=== PATIENT | female | born 1995 | race Two or more races ===

== ENCOUNTER 2019-12-08 07:25 | Emergency (ER) | payer MEDICAID ==
[~2019-12-08] VITALS: Ht 175.3 cm; Wt 101.2 kg
[2019-12-08] MEDS ORDERED: cefTRIAXone SOD 1,000 MG VL IM ONE (09:00)
[2019-12-08 09:13] VITALS: BP 114/74
== END 2019-12-08 09:23 | disposition home or self-care (01) ==
LOC: ER 07:25
DX: J03.90 Acute tonsillitis, unspecified (principal)
CPT/HCPCS: 71046; 81002; 81025; 96372; 99283; J0696

== ENCOUNTER 2021-06-19 15:59 | Emergency (ER) | payer MEDICAID ==
[~2021-06-19] VITALS: Ht 175.3 cm; Wt 110.2 kg
[2021-06-19 19:05] VITALS: BP 125/82
== END 2021-06-19 20:37 | disposition home or self-care (01) ==
LOC: ER 15:59
DX: S93.491A Sprain of other ligament of right ankle, initial encounter (principal); W22.8XXA Striking against or struck by other objects, initial encounter; Y93.89 Activity, other specified; Y92.89 Other specified places as the place of occurrence of the external cause; Y99.8 Other external cause status
CPT/HCPCS: 73610

== ENCOUNTER 2022-06-05 01:28 | Emergency (ER) | payer MEDICAID ==
[~2022-06-05] VITALS: Ht 175.3 cm; Wt 200.0 kg
[2022-06-05 04:00] VITALS: BP 127/63
[2022-06-05] MEDS ORDERED: TETANUS-DIPTH-ACEL PERTUSSIS 0.5ML SYR Tdap IM ONE (04:15)
== END 2022-06-05 18:58 | disposition home or self-care (01) ==
LOC: ER 01:28
DX: S61.432A Puncture wound without foreign body of left hand, initial encounter (principal); W18.09XA Striking against other object with subsequent fall, initial encounter; Y93.89 Activity, other specified; Y92.89 Other specified places as the place of occurrence of the external cause; Y99.8 Other external cause status
CPT/HCPCS: 73130; 90471; 90715

== ENCOUNTER 2023-09-12 04:51 | Emergency (ER) | payer MEDICAID ==
[~2023-09-12] VITALS: Ht 175.3 cm; Wt 113.6 kg
[~2023-09-12 04:51] MED LIST: ERGO1CAP12 PO; FERR-7 PO; MAGN400S25 PO; MINEENE3 RE
[2023-09-12 05:08] VITALS: BP 142/93; PULSE 91; RESP 16; TEMP 97.4
[2023-09-12] MEDS ORDERED: cefTRIAXone SOD 1,000 MG VL IM ONE (06:45)
[2023-09-12 06:50] VITALS: O2SAT 96
[2023-09-12 07:55] LABS: Urine Bacteria FEW /hpf (None Seen); Urine Blood Negative /uL (Negative); Urine Clarity HAZY (Clear); Urine Color Yellow (Yellow); Urine Mucus FEW (None Seen); Urine Protein, UAD TRACE (Negative); Urine Specific Gravity 1.033 (1.001-1.035); Urine Urobilinogen Normal (Negative); Urine WBC 25 /hpf (0 - 5); Urine pH 6.5 (5.0-8.0)
[2023-09-12] MEDS ORDERED: CEPH500C PO (08:19)
[2023-09-12] MEDS ORDERED: METR-344 PO (08:19)
[2023-09-12] MEDS ORDERED: IBUP1TAB5 PO (08:19)
[2023-09-12 09:54] LABS: Vaginal Trichomonas Not Present
[2023-09-12 09:56] LABS: Vaginal Bacteria None Seen
[2023-09-12 10:01] LABS: Vaginal Clue Cells None Seen
[2023-09-12 10:02] LABS: Vaginal Epithelial Cells Moderate
[2023-09-14 04:06] LABS: Chlamydia Trachomatis, NAA Negative (Negative); Neisseria gonorrhoeae, NAA Negative (Negative)
== END 2023-09-12 08:29 | disposition home or self-care (01) ==
LOC: ER 04:51
DX: N76.4 Abscess of vulva (principal); N76.0 Acute vaginitis; Z79.899 Other long term (current) drug therapy
CPT/HCPCS: 81001; 87210; 87491; 87591; 96372; 99283; J0696

== ENCOUNTER 2023-12-28 14:44 | Emergency (ER) | payer MEDICAID ==
[~2023-12-28] VITALS: Ht 175.3 cm; Wt 112.8 kg
[~2023-12-28 14:44] MED LIST changes: +CEPH500C PO; +IBUP1TAB5 PO; +METR-344 PO
[2023-12-28 15:54] VITALS: BP 141/93; PULSE 99; RESP 15; TEMP 98.5; O2SAT 99
[2023-12-28] MEDS: KETOROLAC TROMETH 30 MG/ML 1ML VIAL IM ONE (16:40)
== END 2023-12-28 16:44 | disposition home or self-care (01) ==
LOC: ER 14:44
DX: M25.512 Pain in left shoulder (principal)
CPT/HCPCS: 73000; 73030; 73060; 96372; 99284; J1885

== ENCOUNTER 2024-09-19 00:59 | Emergency (ER) | payer MEDICAID ==
[~2024-09-19] VITALS: Ht 175.3 cm; Wt 50.0 kg
[~2024-09-19 00:59] MED LIST changes: +CYCL-837 PO; +IBUP-1456 PO
[2024-09-19 01:30] VITALS: BP 126/74; PULSE 108; RESP 16; TEMP 98.9; O2SAT 100
--- NOTE | 2024-09-19 02:16 | ED.PDOC ---
History of Present Illness HPI Comments 29-year-old female presents to ER with complaints of flu-like symptoms x2 days. Patient reports that she has been experiencing dry cough, on/off frontal headache and diarrhea x2 days with associated nausea x1 day. States she has been around her niece who has also been experiencing similar symptoms. She rates her current frontal headache pain a 9/10. Denies use of medications for current symptoms. Patient presents to ER ambulatory on arrival, with steady gait, in no distress. Denies vomiting, shortness of breath, hemoptysis, chest pain, sore throat, earache, dizziness, abdominal pain, bloody diarrhea, changes in urination or any further symptoms/complaints Chief Complaint: Flu like Time Seen by MD: 01:39 Primary Care Provider: UNKNOWN Reviewed Notes: Nurses Notes, Medications, Allergies Information Source: Patient Past Medical History PAST MEDICAL HISTORY: Denies Surgical History: Denies all surgeries APPEALS COORDINATOR History: No Pertinent APPEALS COORDINATOR History Family History Family History: Unknown Social History Smoker: Non-Smoker Alcohol: Denies ETOH Use Drugs: Denies Drug Use Lives In: Home Constitutional: No Symptoms Reported EENTM: No Symptoms Reported Respiratory: See HPI Cardiovascular: No Symptoms Reported Gastrointestinal: See HPI Genitourinary: No Symptoms Reported Neurological: See HPI Musculoskeletal: No Symptoms Reported Integumentary: No Symptoms Reported Allergic/Immunocompromised: others (DENIES) Hematologic/Lymphatic: No Symptoms Reported Endocrine: No Symptoms Reported Psychiatric: No symptoms Reported Physical Exam General Appearance: No Apparent Distress, Obese HEENT: Normal ENT Inspection, PERRL/EOMI, Pharynx Normal, TMs Normal Neck: Full Range of Motion, Non-Tender, Normal Respiratory: Chest Non-Tender, Lungs Clear, No Accessory Muscle Use, No Respiratory Distress, Normal Breath Sounds Cardiovascular: No Murmur, No Gallop, Regular Rate/Rhythm Breast Exam: Deferred Gastrointestinal: No Organomegaly, Non Tender, No Pulsatile Mass, Normal Bowel Sounds, Soft Genitalia: Deferred Pelvic: Deferred Rectal: Deferred Extremities: Normal capillary refill, Normal range of motion Neurologic: Alert, 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 Was a procedure done?: No Sedation Sedation?: No Fever Differential Dx Differential Diagnosis: Pneumonia, Pharyngitis, Other (COVID 19, influenza) X-Ray, Labs, Meds, VS Vital Signs Date Time Temp Pulse Resp B/P (MAP) Pulse Ox O2 Delivery O2 Flow Rate FiO2 09/19/24 01:30 98.9 108 16 126/74 (91) 100 Lab Test 09/19/24 02:12 09/19/24 02:10 Range/Units Urine Color Yellow Yellow Urine Clarity Clear Clear Urine pH 5.5 5.0-9.0 Urine Specific [place] 1.038 H 1.001-1.035 Urine Protein Trace H Negative Urine Ketones Negative Negative Urine Blood Trace H Negative /uL Urine Nitrite Negative Negative Urine Bilirubin Negative Negative Urine Urobilinogen Normal Negative mg/dL Urine Leukocyte Esterase 2+ Negative /uL Urine RBC 11 0 - 4 /hpf Urine WBC 8 0 - 5 /hpf Urine Squamous Epithelial Cells Few <5 /hpf Urine Bacteria None seen None Seen /hpf Urine Mucus Few None Seen Urine Glucose Normal Normal mg/dL Urine Test Negative Negative Influenza Type A Antigen Negative Negative Influenza Type B Antigen Negative Negative SARS-CoV-2 Antigen (Rapid) Negative NEGATIVE Mary reviewed - negative Influenza A&B reviewed- negative Urinalysis reviewed - urine leukocyte esterase 2+, urine blood trace, urine nitrites negative Urine reviewed - negative Patient tolerating p.o. intake well and in no distress prior to discharge Diet education discussed Advised to follow up with PCP in 1-2 days Patient verbalized understanding and agreeable with current plan of care Advised to return to ER immediately if symptoms worsen Time of 1ST Reevaluation: 02:12 Reevaluation 1ST: N/A Patient Education/Counseling: Diagnosis, Treatment, Prognosis, Need For Follow Up Family Education/Counseling: No Family Present Departure 1 Departure Time of Disposition: 03:02 Impression: Primary Impression: UTI (urinary tract infection) Qualified Codes: N30.01 - Acute cystitis with hematuria Additional Impressions: Viral URI Gastroenteritis Disposition: HOME / SELF CARE / HOMELESS Condition: Stable e-Prescriptions Ciprofloxacin Hcl (Ciprofloxacin Hcl) 500 Mg Tab 1 TAB PO BID for 7 Days, #14 TAB 0 Refills Prov: CARLEE DHILLON 09/19/24 Acetaminophen (Acetaminophen) 500 Mg Tab 500 MG PO Q4HPRN, #30 TAB 0 Refills Prov: CARLEE DHILLON 09/19/24 Discharged With: Self Critical Care Note Critical Care Time?: No Stability Stability form required: No Heart Score Heart Score: Heart Score Response (Comments) Value History N/A 0 EKG N/A 0 Age N/A 0 Risk Factors N/A 0 Troponin N/A 0 Total 0 CARLEE DHILLON Sep 19, 2024 02:16
[2024-09-19 02:33] LABS: Urine Bacteria None Seen /hpf (None Seen)
[2024-09-19 02:49] LABS: Urine Blood TRACE /uL (Negative); Urine Clarity Clear (Clear); Urine Color Yellow (Yellow); Urine Mucus FEW (None Seen); Urine Protein, UAD TRACE (Negative); Urine Specific Gravity 1.038 (1.001-1.035); Urine Urobilinogen Normal (Negative); Urine WBC 8 /hpf (0 - 5); Urine pH 5.5 (5.0-9.0)
[2024-09-19 03:02] LABS: Rapid Influenza A Negative (Negative); Rapid Influenza B Negative (Negative)
[2024-09-19 03:03] LABS: COVID19 ANTIGEN SOFIA FIA NEGATIVE (NEGATIVE)
[2024-09-19] MEDS ORDERED: CIPR500T4 PO (03:41)
[2024-09-19] MEDS ORDERED: ACET500T58 PO (03:41)
== END 2024-09-19 06:27 | disposition home or self-care (01) ==
LOC: ER 00:59
DX: N39.0 Urinary tract infection, site not specified (principal); J06.9 Acute upper respiratory infection, unspecified; B97.89 Other viral agents as the cause of diseases classified elsewhere; K52.9 Noninfective gastroenteritis and colitis, unspecified; Z20.822 Contact with and (suspected) exposure to COVID-19
CPT/HCPCS: 36415; 81001; 81025; 87426; 87804